=== PATIENT | female | born 1965 | race Caucasian/White ===

== ENCOUNTER 2017-09-16 23:10 | Inpatient (IN) ==
--- NOTE | 2017-09-17 00:41 | Emergency Department Note ---
Disposition Clinical Impression: Neurological deficit present, Weakness of right upper extremity CVA (cerebral vascular accident) Qualifiers: CVA mechanism: unspecified Qualified Code(s): I63.9 - Cerebral infarction, unspecified Disposition: Admitted As Inpatient Condition: Good Time of Disposition: 02:46 General Adult HPI - General Chief complaint: ED General Medical Stated complaint: right wrist pain Time Seen by Provider: 09/16/17 23:30 Source: family Limitations: no limitations Nursing Notes Reviewed: Yes Vital Signs Reviewed: Yes - History of Present Illness HPI Narrative: 52-year-old female Smoker complains of right upper extremity weakness 4 days. Patient describes being seen at the [facility] yesterday, where she had been told that she had a possible stroke. Reportedly at that time transfer for admission to [facility] was offered, and they have discussed with her primary care provider who also advised for admission, but apparently patient had declined. She now presents with similar complaints, and is agreeable to admission. She now mentions that she has pain over the ulnar aspect of her right wrist, and feels that her wrist is "pulling". Other than that she denies any injuries, difficulty swallowing, confusion, fevers. Pain Scale: 8 - Related Data Home Medications Medication Instructions Recorded Confirmed Duloxetine HCl [Cymbalta] 60 mg PO BID 11/16/15 09/15/17 Levothyroxine [Synthroid] 88 mcg PO DAILY 03/01/16 09/15/17 Losartan [Cozaar] 100 mg PO HS 03/01/16 09/15/17 Pregabalin [Lyrica] 100 mg PO TID 07/24/16 09/15/17 Hydromorphone HCl [Dilaudid] 2.5 - 5 ml PO TID 08/06/16 09/15/17 Cetirizine HCl/Pseudoephedrine 1 tab PO BID PRN 09/26/16 09/15/17 [Cetirizine-Pse ER 5-120 mg Tab] Esomeprazole Magnesium [Nexium] 40 mg PO DAILY 09/26/16 09/15/17 Metoprolol XL (24 HR) Succ [Toprol 100 mg PO DAILY 09/26/16 09/15/17 XL] Quetiapine Fumarate [SEROquel] 100 mg PO HS 09/26/16 09/15/17 Insulin Glargine [Lantus] 20 unit SQ QAM 09/15/17 09/15/17 Allergies Allergy/AdvReac Type Severity Reaction Status Date / Time codeine Allergy Vomiting Verified 09/15/17 18:23 nitrofurantoin Allergy See Verified 09/15/17 18:23 [From Macrodantin] Comments ofloxacin [From Floxin] Allergy Vomiting Verified 09/15/17 18:23 Penicillins [PCN] AdvReac Mild See Verified 09/15/17 18:23 Comments lisinopril AdvReac Vomiting Verified 09/15/17 18:23 All systems ED: reviewed and negative except as stated. Review of Systems: As Per HPI Constitutional: Denies: fever, chills Eyes: Denies: vision change ENT ED: Denies: throat pain Cardiovascular: Denies: chest pain, palpitations Respiratory: Denies: dyspnea, wheezes Gastrointestinal: Denies: nausea, vomiting Genitourinary: Denies: dysuria Musculoskeletal: Denies: back pain Integumentary: Denies: rash Neurological: Reports: as per HPI. Denies: headache Psychiatric: Reports: anxiety Endocrine: Denies: fatigue Hematological/Lymphatic: Denies: easy bleeding Allergic/Immunologic: Denies: facial swelling Past Medical History - Past Medical History Medical history: Reports: arthritis, cancer, COPD, diabetes, fibromyalgia, hyperlipidemia, hypertension, RA, thyroid disease Surgical history: Reports: appendectomy, breast surgery, cholecystectomy, hysterectomy, orthopedic, other, BEATRIZ/BSO, thyroidectomy, other Psychiatric history: Reports: anxiety, depression, PTSD, prior suicide attempt - Social History Smoking Status: Current every day smoker Smokeless Tobacco Status: No Alcohol use: Reports: none Drug use: Reports: none Physical Exam - General Limitations: no limitations General appearance: alert, in no apparent distress - Head Head exam: normocephalic - Eye Eye exam: Present: EOMI - ENT ENT exam: mucous membranes moist - Neck Neck exam: Present: full ROM - Chest Chest inspection: Present: symmetric chest wall rise - Respiratory Respiratory exam: Absent: respiratory distress - Cardiovascular Cardiovascular exam: Present: regular rate - Abdominal Exam Abdominal exam: Present: soft, Non-Tender - Extremities Exam Extremities exam: Present: normal inspection, normal capillary refill - Back Exam Back exam: Present: full ROM. Absent: tenderness, CVA tenderness (R), CVA tenderness (L) - Neurological Exam Neurological exam: Present: alert - Expanded Neurological Exam Speech: Present: fluid speech Cranial nerves: EOM function (II, III, IV, ): Normal, facial sensation (V): Normal, spinal accessory function (XI): Normal, tongue deviation (XII): Normal Motor strength - LUE: 5/5 Motor strength - RUE: 0/5 Motor strength - LLE: 5/5 Motor strength - RLE: 5/5 Sensory exam upper extremity: light touch: Abnormal Right, pin prick: Abnormal Right Sensory exam lower extremity: light touch: Normal Coma Scale Eye Opening: Spontaneous Coma Scale Motor Response: Obeys Commands Coma Scale Verbal Response: Oriented Coma Scale Total: 15 - Psychiatric Psychiatric exam: Present: normal affect, normal mood - Skin Skin exam: Present: warm, dry, intact, normal color Course Course Narrative: Patient presents with four-day history of right upper extremity weakness. She had a no deficit workup at [facility] yesterday, and was offered admission and patient had apparently declined. On examination, she does have a flaccid right upper extremity, with decreased sensation. No facial asymmetry. No altered mental status. Good extremity strength and lower extremities, normal distal pulses. Review of medical records. Patient had normal CT scan. She did have a white count of 17. Chest x-ray urinalysis negative for any signs of infection. Patient afebrile here with normal vital limits. Discussed with Dr. Hugo, who agreed with decision to admit. We will repeat CT scan, and blood work. - Reevaluation(s) Reevaluation #1: Patient discussed with and accepted by hospitalist Dr. Quinteros Time: 02:45 Vital Signs Temperature 98.1 F 09/16/17 23:13 Pulse Rate 85 09/16/17 23:13 Respiratory Rate 16 09/16/17 23:13 Blood Pressure 144/89 09/16/17 23:13 O2 Sat by Pulse Oximetry 97 09/16/17 23:13 Temperature 98.6 F 09/17/17 04:19 Pulse Rate 79 09/17/17 04:19 Respiratory Rate 17 09/17/17 04:19 Blood Pressure 115/72 09/17/17 04:19 O2 Sat by Pulse Oximetry 94 09/17/17 04:19 Oxygen Delivery Oxygen Delivery Room Air Medical Decision Making - MDM Narrative Medical decision making narrative: NIH 5. Noted right upper extremity weakness, pain to right wrist. Patient discussed with Dr. Hugo also decreased on the patient agreed with workup and disposition. Patient was accepted by hospitalist for inpatient management Head CT 09/17/17 00:41 IMPRESSION: No acute intracranial abnormality. D/ / Michoacano Hill MD / Michoacano Hill MD Interpreting Provider: Michoacano Hill MD Wrist X-Ray 09/17/17 01:07 IMPRESSION: No evidence of an acute injury. D/ / Michoacano Hill MD / Michoacano Hill MD Interpreting Provider: Michoacano Hill MD - Medical Records Medical records reviewed: Yes I reviewed the patient's medical records. - Lab Data Lab results reviewed: Yes I reviewed the patient's lab results. Result diagrams: 09/17/17 00:58 09/17/17 00:58 Lab Results 09/17/17 09/17/17 09/17/17 Range/Units 00:58 00:58 00:58 WBC 17.3 H (4.3-11.1) K/mcL RBC 4.69 (3.82-4.97) M/mcL Hgb 14.0 (11.5-15.4) g/dL Hct 41.8 (35.3-44.9) % MCV 89.1 (83.0-100.0) fL MCH 29.9 (28.0-33.3) pg MCHC 33.5 (31.6-35.5) g/dL RDW 13.5 (11.5-14.5) % Plt Count 342 (140-400) K/mcL MPV 9.7 (9.4-12.4) fL Immature Gran % 0.5 (0-4) % Seg Neutrophils % 67.2 % Lymphocytes % 25.8 % Monocytes % 4.9 % Eosinophils % 1.2 % Basophils % 0.4 % Neutrophils # 11.7 H (1.6-8.9) K/mcL Lymphocytes # 4.5 (0.6-4.6) K/mcL Monocytes # 0.9 (0.0-1.3) K/mcL Eosinophils # 0.2 (0.0-0.6) K/mcL Basophils # 0.1 (0.0-0.2) K/mcL PT 12.2 H (9.4-12.1) Seconds INR 1.1 APTT 31.8 (26.0-36.0) Seconds Sodium 135 L (136-145) mEq/L Potassium 3.3 L (3.5-5.1) mEq/L Chloride 100 (98-107) mEq/L Carbon Dioxide 28 (23-29) mEq/L BUN 12 (6-20) mg/dL Creatinine 0.71 (0.60-1.20) mg/dL Est GFR ( Amer) > 60 (> 60) Est GFR (Non-Af Amer) > 60 (> 60) BUN/Creatinine Ratio 17 (6-26) Glucose 100 (70-105) mg/dL Calculated Osmolality 280 (280-300) Calcium 9.3 (8.6-10.3) mg/dL Magnesium 2.0 (1.6-2.6) mg/dL Triglycerides 174 H (< 150) mg/dL Cholesterol 209 H (< 200) mg/dL LDL Cholesterol, Calc 141 H (0-99) mg/dL VLDL Cholesterol, Calc 35 H (< 31) mg/dL HDL Cholesterol 33 L (40-59) mg/dL Cholesterol/HDL Ratio 6.3 H (0-4.9) Urine Color (Yellow) Urine Clarity (Clear) Urine pH (5.0-8.0) pH Units Ur Specific [place] (1.010-1.025) Urine Protein (Neg-Trace) mg/dL Urine Glucose (UA) (Normal) mg/dL Urine Ketones (Negative) mg/dL Urine Blood (Negative) Urine Nitrite (Negative) Urine Bilirubin (Negative) Urine Urobilinogen (Normal) mg/dL Ur Leukocyte Esterase (Negative) Urine Microscopic RBC (0-3) per hpf Urine Microscopic WBC (0-3) per hpf Ur Squamous Epith Cells (None-Few) per lpf Urine Bacteria (None-Few) per hpf Hyaline Casts (None-Few) per lpf Ur Culture Indicated? (NO) 09/17/17 Range/Units 01:56 WBC (4.3-11.1) K/mcL RBC (3.82-4.97) M/mcL Hgb (11.5-15.4) g/dL Hct (35.3-44.9) % MCV (83.0-100.0) fL MCH (28.0-33.3) pg MCHC (31.6-35.5) g/dL RDW (11.5-14.5) % Plt Count (140-400) K/mcL MPV (9.4-12.4) fL Immature Gran % (0-4) % Seg Neutrophils % % Lymphocytes % % Monocytes % % Eosinophils % % Basophils % % Neutrophils # (1.6-8.9) K/mcL Lymphocytes # (0.6-4.6) K/mcL Monocytes # (0.0-1.3) K/mcL Eosinophils # (0.0-0.6) K/mcL Basophils # (0.0-0.2) K/mcL PT (9.4-12.1) Seconds INR APTT (26.0-36.0) Seconds Sodium (136-145) mEq/L Potassium (3.5-5.1) mEq/L Chloride (98-107) mEq/L Carbon Dioxide (23-29) mEq/L BUN (6-20) mg/dL Creatinine (0.60-1.20) mg/dL Est GFR ( Amer) (> 60) Est GFR (Non-Af Amer) (> 60) BUN/Creatinine Ratio (6-26) Glucose (70-105) mg/dL Calculated Osmolality (280-300) Calcium (8.6-10.3) mg/dL Magnesium (1.6-2.6) mg/dL Triglycerides (< 150) mg/dL Cholesterol (< 200) mg/dL LDL Cholesterol, Calc (0-99) mg/dL VLDL Cholesterol, Calc (< 31) mg/dL HDL Cholesterol (40-59) mg/dL Cholesterol/HDL Ratio (0-4.9) Urine Color Yellow (Yellow) Urine Clarity Clear (Clear) Urine pH 6.5 (5.0-8.0) pH Units Ur Specific [place] 1.012 (1.010-1.025) Urine Protein Negative (Neg-Trace) mg/dL Urine Glucose (UA) Normal (Normal) mg/dL Urine Ketones Negative (Negative) mg/dL Urine Blood Trace H (Negative) Urine Nitrite Negative (Negative) Urine Bilirubin Negative (Negative) Urine Urobilinogen Normal (Normal) mg/dL Ur Leukocyte Esterase Negative (Negative) Urine Microscopic RBC 0-3 (0-3) per hpf Urine Microscopic WBC 0-3 (0-3) per hpf Ur Squamous Epith Cells Few (None-Few) per lpf Urine Bacteria None Seen (None-Few) per hpf Hyaline Casts None Seen (None-Few) per lpf Ur Culture Indicated? NO (NO) - Radiology Data Radiology results reviewed: Yes I reviewed the patient's radiology results.
[2017-09-17] MEDS ORDERED: *HR* FentaNYL (PF) 100 MCG/2 ML VIAL IVP ONE (01:08)
--- NOTE | 2017-09-17 01:08 | Emergency Department Note ---
Disposition Clinical Impression: Neurological deficit present Disposition: Admitted As Inpatient Referrals: Augie Feliciano MD [Primary Care Provider] - Forms: ED Satisfaction Letter, Work/School Release General Adult HPI - General Chief complaint: ED General Medical Stated complaint: right wrist pain Time Seen by Provider: 09/16/17 23:30 Source: family Limitations: no limitations - History of Present Illness Pain Scale: 8 - Related Data Home Medications Medication Instructions Recorded Confirmed Duloxetine HCl [Cymbalta] 60 mg PO BID 11/16/15 09/15/17 Levothyroxine [Synthroid] 88 mcg PO DAILY 03/01/16 09/15/17 Losartan [Cozaar] 100 mg PO HS 03/01/16 09/15/17 Pregabalin [Lyrica] 100 mg PO TID 07/24/16 09/15/17 Hydromorphone HCl [Dilaudid] 2.5 - 5 ml PO TID 08/06/16 09/15/17 Cetirizine HCl/Pseudoephedrine 1 tab PO BID PRN 09/26/16 09/15/17 [Cetirizine-Pse ER 5-120 mg Tab] Esomeprazole Magnesium [Nexium] 40 mg PO DAILY 09/26/16 09/15/17 Metoprolol XL (24 HR) Succ [Toprol 100 mg PO DAILY 09/26/16 09/15/17 XL] Quetiapine Fumarate [SEROquel] 100 mg PO HS 09/26/16 09/15/17 Insulin Glargine [Lantus] 20 unit SQ QAM 09/15/17 09/15/17 Allergies Allergy/AdvReac Type Severity Reaction Status Date / Time codeine Allergy Vomiting Verified 09/15/17 18:23 nitrofurantoin Allergy See Verified 09/15/17 18:23 [From Macrodantin] Comments ofloxacin [From Floxin] Allergy Vomiting Verified 09/15/17 18:23 Penicillins [PCN] AdvReac Mild See Verified 09/15/17 18:23 Comments lisinopril AdvReac Vomiting Verified 09/15/17 18:23 Past Medical History - Past Medical History Medical history: Reports: arthritis, cancer, COPD, diabetes, fibromyalgia, hyperlipidemia, hypertension, RA, thyroid disease Surgical history: Reports: appendectomy, breast surgery, cholecystectomy, hysterectomy, orthopedic, other, BEATRIZ/BSO, thyroidectomy, other Psychiatric history: Reports: anxiety, depression, PTSD, prior suicide attempt - Social History Smoking Status: Current every day smoker Smokeless Tobacco Status: No Alcohol use: Reports: none Drug use: Reports: none Physical Exam - General Limitations: no limitations General appearance: alert, in no apparent distress Course Vital Signs Temperature 98.1 F 09/16/17 23:13 Pulse Rate 85 09/16/17 23:13 Respiratory Rate 16 09/16/17 23:13 Blood Pressure 144/89 09/16/17 23:13 O2 Sat by Pulse Oximetry 97 09/16/17 23:13 Temperature 98.1 F 09/16/17 23:32 Pulse Rate 50 09/17/17 00:50 Respiratory Rate 18 09/17/17 00:50 Blood Pressure 132/75 09/17/17 00:50 O2 Sat by Pulse Oximetry 90 09/17/17 00:50 Oxygen Delivery Oxygen Delivery Room Air Attestation Statement - Attestation Attestation: I examined this patient and my medical decision-making was reviewed with the Resident Physician. I agree with the documented findings, disposition and treatment plan as described except to the extent set forth below. 52 year old female who originally presented to the ED in [place] for right sided neuro defecits with flaccidity and contraction who was offered admission to the hospital for stroke eval left AMA. Danielle is back in our ed today with wosening symptoms and pain in the right wrist now from the contraction and saw her PCP today and was recommended to come to the ED for admsision to the hospital. Danielle is agreeable at thist time. We will obtain HCT and XR of right wrist and pain medications. We will admit to medicine
[2017-09-17 01:09] LABS: Basophils # 0.1 K/mcL (0.0-0.2); Basophils % 0.4 %; Eosinophils # 0.2 K/mcL (0.0-0.6); Eosinophils % 1.2 %; Hematocrit 41.8 % (35.3-44.9); Immature Granulocytes % 0.5 % (0-4); Lymphocytes # 4.5 K/mcL (0.6-4.6); Lymphocytes % 25.8 %; Mean Corpuscular HGB Conc 33.5 g/dL (31.6-35.5); Mean Corpuscular Hemoglobin 29.9 pg (28.0-33.3); Mean Corpuscular Volume 89.1 fL (83.0-100.0); Mean Platelet Volume 9.7 fL (9.4-12.4); Monocytes # 0.9 K/mcL (0.0-1.3); Monocytes % 4.9 %; Neutrophils # 11.7 K/mcL (1.6-8.9); Platelet Count 342 K/mcL (140-400); Red Blood Count 4.69 M/mcL (3.82-4.97); Red Cell Distribution Width 13.5 % (11.5-14.5); Segmented Neutrophils % 67.2 %
[2017-09-17 01:15] LABS: INR 1.1; Prothrombin Time 12.2 Seconds (9.4-12.1)
[2017-09-17 01:17] LABS: Activated Partial Thrombo Time 31.8 Seconds (26.0-36.0)
[2017-09-17 01:32] LABS: BUN/Creatinine Ratio 17 (6-26); Blood Urea Nitrogen 12 mg/dL (6-20); Calcium 9.3 mg/dL (8.6-10.3); Carbon Dioxide 28 mEq/L (23-29); Chloride 100 mEq/L (98-107); Glucose 100 mg/dL (70-105); Osmolality,Calculated 280 (280-300); Potassium 3.3 mEq/L (3.5-5.1); Sodium 135 mEq/L (136-145); eGFR For Non-African Americans > 60 (> 60)
[2017-09-17 02:32] LABS: Bilirubin,Urine Negative (Negative); Blood,Urine Trace (Negative); Clarity,Urine Clear (Clear); Color,Urine Yellow (Yellow); Glucose,Urine (UA) Normal (Normal); Ketones,Urine Negative (Negative); Leukocyte Esterase,Urine Negative (Negative); Nitrite,Urine Negative (Negative); PH,Urine 6.5 pH Units (5.0-8.0); Protein,Urine Negative (Neg-Trace); Specific Gravity,Urine 1.012 (1.010-1.025); Urobilinogen,Urine Normal (Normal)
[2017-09-17 02:35] LABS: Bacteria,Urine None Seen per hpf (None-Few); Hyaline Casts,Urine None Seen per lpf (None-Few); RBC,Urine 0-3 per hpf (0-3); Squamous Epithelial Cell,Urine Few per lpf (None-Few); WBC,Urine 0-3 per hpf (0-3)
[2017-09-17] MEDS ORDERED: *HR* OxyCODONE Immed Rel 5 MG TABLET PO PRN (02:41)
[2017-09-17] MEDS ORDERED: *HR* HYDROcodone/Acet 5/325 mg TABLET PO PRN (02:41)
[2017-09-17] MEDS ORDERED: Naloxone 0.4 MG/ML INJ IVP PRN (02:41)
[2017-09-17] MEDS ORDERED: Acetaminophen 325 MG TABLET PO PRN (02:41)
[2017-09-17] MEDS ORDERED: Baclofen 10 MG TABLET PO PRN (02:45)
--- NOTE | 2017-09-17 02:54 | Internal Med History&Physical ---
Date of Encounter: 09/17/17 Time of Encounter: 03:40 Internal Medicine - H&P: HPI Chief complaint: R UE weakness and pain Admitted From: Home History of present illness: Ms. Yañez is a 52 year old female with past medical history of diabetes, hypertension, hyperlipidemia presented to the ED with right upper limb weakness and pain. She was actually at the outside hospital ED yesterday for the same complaint, was found to have flaccid paralysis of R arm, and was advised to be transferred to [facility] for further workup of stroke which she declined and left AMA. She was seen earlier today by her primary care doctor and was advised to come back to the ED for admission. Started about 4 days ago, sudden in onset, no aggravating or relieving factors. She initially attributed it to being outside in the heat for prolonged period of time. Associated with right arm numbness and slurring of speech. Since the onste, she also complains of choking on her food intermittently. Denies any headache, blurring of vision, facial droop, or any other focal weakness/numbness. No fever/chills, nausea/vomiting, abdominal pain, change of bowel habits, or dysuria. In the ED, she was afebrile and hemodynamically stable. Workup again demonstrated leukocytosis of 17.[address] head again showed no acute intracranial processes. Right wrist x-ray was within normal limits. She was given 40meq of potassium chloride and admitted for further management. Past Med Surg Social Fam HX - Past Medical History Attestation: Yes The following information was validated with the patient. Medical history: arthritis, cancer, COPD, diabetes, fibromyalgia, hyperlipidemia , hypertension, RA, thyroid disease Additional medical history: vitamin d defficiency - chronic back pain Psychiatric history: anxiety, depression, PTSD, prior suicide attempt - Past Surgical History Surgical History: appendectomy, breast surgery, cholecystectomy, hysterectomy, orthopedic, other, BEATRIZ/BSO, thyroidectomy, other Additional surgical history: bronch - heart cath - Social History Smoking Status: Current every day smoker Smokeless Tobacco Status: No Alcohol use: none Drug use: none Internal Medicine - H&P: Meds Duloxetine HCl [Cymbalta] 60 mg PO BID 11/16/15 [History] Levothyroxine [Synthroid] 88 mcg PO DAILY 03/01/16 [History] Losartan [Cozaar] 100 mg PO HS 03/01/16 [History] Pregabalin [Lyrica] 100 mg PO TID 07/24/16 [History] Hydromorphone HCl [Dilaudid] 2.5 - 5 ml PO TID 08/06/16 [History] Cetirizine HCl/Pseudoephedrine [Cetirizine-Pse ER 5-120 mg Tab] 1 tab PO BID PRN 09/26/16 [History] Esomeprazole Magnesium [Nexium] 40 mg PO DAILY 09/26/16 [History] Metoprolol XL (24 HR) Succ [Toprol XL] 100 mg PO DAILY 09/26/16 [History] Quetiapine Fumarate [SEROquel] 100 mg PO HS 09/26/16 [History] Insulin Glargine [Lantus] 20 unit SQ QAM 09/15/17 [History] 3 Allergy/AdvReac Type Severity Reaction Status Date / Time codeine Allergy Vomiting Verified 09/15/17 18:23 nitrofurantoin Allergy See Verified 09/15/17 18:23 [From Macrodantin] Comments ofloxacin [From Floxin] Allergy Vomiting Verified 09/15/17 18:23 Penicillins [PCN] AdvReac Mild See Verified 09/15/17 18:23 Comments lisinopril AdvReac Vomiting Verified 09/15/17 18:23 All Systems PM: A 10-system review of systems was performed and is negative for pertinent findings except as documented above in the HPI. - Constitutional Vitals: Temp Pulse Resp BP Pulse Ox 98.1 F 50 18 132/75 90 09/16/17 23:32 09/17/17 00:50 09/17/17 00:50 09/17/17 00:50 09/17/17 00:50 Exam: General: Alert and oriented, not in acute distress. HEENT:EOM, pupils equal, round and reactive. Cardiovascular:Normal S1 & S2, No JVD. Pulse regular. Lungs: clear to auscultation, no wheezes/rales Abdomen:Soft, non-tender, no rigidity. Extremities:No deformity or swelling Neurological: CN II-XII intact, no cerebellar signs. R upper extremity 0/5 in power with sensation loss throughout all dermatomes. Other extremities power and sensation intact. Babinski downgoing bilaterally Skin:Normal color, no rash, no lesions. Pulses:Carotid and radial pulses normal +2. Rest of the physical exam is non contributory Internal Med - H&P Results - Labs CBC & Chem 7: 09/17/17 00:58 09/17/17 00:58 Labs: Short CBC 09/17/17 Range/Units 00:58 WBC 17.3 H (4.3-11.1) K/mcL Hgb 14.0 (11.5-15.4) g/dL Hct 41.8 (35.3-44.9) % Plt Count 342 (140-400) K/mcL Neutrophils # 11.7 H (1.6-8.9) K/mcL BMP 09/17/17 00:58 Sodium 135 L Potassium 3.3 L Chloride 100 Carbon Dioxide 28 BUN 12 Creatinine 0.71 Glucose 100 Calcium 9.3 Urine 09/17/17 Range/Units 01:56 Urine Color Yellow (Yellow) Urine Clarity Clear (Clear) Urine pH 6.5 (5.0-8.0) pH Units Ur Specific [place] 1.012 (1.010-1.025) Urine Protein Negative (Neg-Trace) mg/dL Urine Glucose (UA) Normal (Normal) mg/dL - Impressions ITS Impressions Head CT 09/17/17 00:41 IMPRESSION: No acute intracranial abnormality. D/ / Michoacano Hill MD / Michoacano Hill MD Interpreting Provider: Michoacano Hill MD Wrist X-Ray 09/17/17 01:07 IMPRESSION: No evidence of an acute injury. D/ / Michoacano Hill MD / Michoacano Hill MD Interpreting Provider: Michoacano Hill MD - Assessment and plan (1) CVA (cerebral vascular accident) Current Visit: Yes Status: Acute Assessment and plan: Flaccid paralysis of right upper limb and pain from contracture is highly suspicious for cerebrovascular accident Risk factors including diabetes, hypertension, hyperlipidemia, and active tobacco use. CT head -ve for acute intracranial processes start ASA, statin Will proceed with MR brain telemetry overnight Echocardiogram, carotid doppler Check A1c, lipid NPO, speech eval as patient is complaining of dysphagia PT/OT smoking cessation emphasized, NRT PRN Qualifiers: CVA mechanism: unspecified Qualified Code(s): I63.9 - Cerebral infarction, unspecified (2) Hypokalemia Current Visit: Yes Status: Acute Assessment and plan: repleted (3) DM type 2 (diabetes mellitus, type 2) Current Visit: No Status: Chronic Assessment and plan: A1c 6.8 in 04/2017, on lantus 20U daily and novolog sliding scale repeat A1c levemir 10U HS and low dose sliding scale AC+HS ADA diet Qualifiers: Diabetes mellitus mcfp insulin use: with mcfp use Diabetes mellitus complication status: without complication Qualified Code(s): E11.9 - Type 2 diabetes mellitus without complications; Z79.4 - assisted (current) use of insulin (4) Hypertension Current Visit: Yes Status: Acute Assessment and plan: out of window for permissive HTN resume home meds when reconciled Qualifiers: Hypertension type: unspecified Qualified Code(s): I10 - Essential (primary ) hypertension (5) Hypothyroidism Current Visit: Yes Status: Acute Assessment and plan: resume home meds Qualifiers: Hypothyroidism type: unspecified Qualified Code(s): E03.9 - Hypothyroidism , unspecified (6) DVT prophylaxis Current Visit: Yes Status: Acute Assessment and plan: SQ heparin - Time Spent With Patient Total time spent is greater than 50% in coordination of care (as documented) at patient's floor/unit and/or counseling patient:
[2017-09-17 03:06] LABS: Chol/HDL Ratio 6.3 (0-4.9); Cholesterol 209 mg/dL (< 200); HDL Cholesterol 33 mg/dL (40-59); LDL Cholesterol,Calculated 141 mg/dL (0-99); Triglycerides 174 mg/dL (< 150)
[2017-09-17] MEDS ORDERED: *HR* Dextrose 50 % in Water (Syg) 50 ML SYRINGE IVP PRN (03:15)
[2017-09-17] MEDS ORDERED: Dextrose Gel 15 GM/37.5 ML TUBE PO PRN ×2 (03:15)
[2017-09-17] MEDS ORDERED: D5% in Water 1,000 ML IVC PRN (03:15)
[2017-09-17] MEDS ORDERED: Loratadine/Pseudophed (12 HR) 1 EACH TABLET PO PRN (05:51)
[2017-09-17] MEDS ORDERED: *HR* Heparin 5,000 UNIT/ML VIAL SQ SCH (06:00)
[2017-09-17] MEDS ORDERED: Insulin LISPRO 300 UNITS/3 ML VIAL SQ SCH ×2 (07:30→21:00)
[2017-09-17] MEDS ORDERED: Nicotine 21 MG PATCH.TD24 TD SCH (09:00)
[2017-09-17] MEDS ORDERED: Aspirin Enteric Coated 81 MG Tablet PO SCH (09:00)
[2017-09-17] MEDS ORDERED: Pregabalin 50 MG CAPSULE PO SCH (09:00)
[2017-09-17] MEDS ORDERED: Metoprolol XL (24 HR) Succ 50 MG TAB.ER.24H PO SCH (09:00)
[2017-09-17 09:51] LABS: Estimated Average Glucose 134 mg/dl; Hemoglobin A1C 6.3 %
[2017-09-17 12:13] VITALS: BP 106/72
--- NOTE | 2017-09-17 15:11 | Internal Med Progress Note ---
Hospitalist Progress Note - Encounter Date of Encounter: 09/17/17 Time of Encounter: 10:00 - Subjective Interval History: Patient admitted early this a.m. throughout the day she said she is feeling well however she still has flaccid paralysis of her right upper extremity. Able to slightly move her fourth and fifth digit and only about 2 cm of movement. Also sensation except in her wrist. Has significant pain in her wrist. Denies slurred speech, difficulty swallowing. Denies headache, vision changes, instability. - Exam Vitals: Temp Pulse Resp BP Pulse Ox 98.2 F 72 14 106/72 95 09/17/17 12:03 09/17/17 12:03 09/17/17 12:03 09/17/17 12:03 09/17/17 08:13 Exam: General: Mild distress, alert and oriented HEENT: Atraumatic normocephalic, PERRLA, EOMI Cardio: Regular rate and rhythm, no murmurs rubs or gallops Pulmonary clear to auscultation bilaterally no wheezes rales or rhonchi MSK: 0/5 strength right upper extremity, Neuro: Cranial nerves II through XII intact, no cerebellar signs, loss of sensation right upper extremity except for pain in wrist Psych: Alert and oriented, strongly desired to go home patient seems to only be minimally concerned with her medical issues - Assessment and Plan (1) Neurological deficit present Current Visit: Yes Status: Acute Assessment and Plan: Flaccid paralysis of right upper limb and pain from contracture is highly suspicious for cerebrovascular accident Risk factors including diabetes, hypertension, hyperlipidemia, and active tobacco use. MRI negative for an acute intercranial process MRI of cervical spine say no significant spinal cord compressssion or narrowing MRI of chest with attention to brachioplexus pending telemetry overnight Echocardiogram, carotid doppler Plan -PT/OT -Smoking cessation emphasized, NRT PRN (2) CVA (cerebral vascular accident) Current Visit: Yes Status: Acute Assessment and Plan: Flaccid paralysis of right upper limb and pain from contracture is highly suspicious for cerebrovascular accident Risk factors including diabetes, hypertension, hyperlipidemia, and active tobacco use. MRI negative for an acute intercranial process start ASA, statin Will proceed with MR brain telemetry overnight Echocardiogram, carotid doppler Check A1c, lipid NPO, speech eval as patient is complaining of dysphagia PT/OT smoking cessation emphasized, NRT PRN (3) DM type 2 (diabetes mellitus, type 2) Current Visit: No Status: Chronic Assessment and Plan: Known history A1c 6.8 in 04/2017, on lantus 20U daily and novolog sliding scale repeat A1c levemir 10U HS and low dose sliding scale AC+HS ADA diet (4) Hypokalemia Current Visit: Yes Status: Acute (5) Hypertension Current Visit: Yes Status: Acute (6) DVT prophylaxis Current Visit: Yes Status: Acute (7) Hypothyroidism Current Visit: Yes Status: Acute - Time Spent with Patient Total time spent is greater than 50% in coordination of care (as documented) at patient's floor/unit and/or counseling patient: Internal Medicine: Result - Labs CBC & Chem 7: 09/17/17 00:58 09/17/17 00:58 - ABG Interpretation ABG results: PT/INR, D-dimer PT 12.2 Seconds (9.4-12.1) H 09/17/17 00:58 - Impressions Impressions Cervical Spine MRI 09/17/17 12:00 IMPRESSION: Mild degenerative changes of the cervical spine as described above with mild left neural foraminal narrowing at C5-6 and C6-7. No significant spinal canal stenosis or right neural foraminal narrowing evident. D/ / 09/17/2017 14:24:49 Kendrick Campuzano MD / [email or web address] Interpreting Provider: Kendrick Campuzano MD Consult Discharge Plan - Plan Referrals: Augie Feliciano MD [Primary Care Provider] - (2) CVA (cerebral vascular accident) Qualifiers: CVA mechanism: unspecified Qualified Code(s): I63.9 - Cerebral infarction, unspecified (3) DM type 2 (diabetes mellitus, type 2) Qualifiers: Diabetes mellitus intermediate accountant insulin use: with intermediate accountant use Diabetes mellitus complication status: without complication Qualified Code(s): E11.9 - Type 2 diabetes mellitus without complications; Z79.4 - predatory animal exterminator (current) use of insulin (5) Hypertension Qualifiers: Hypertension type: unspecified Qualified Code(s): I10 - Essential (primary) hypertension (7) Hypothyroidism Qualifiers: Hypothyroidism type: unspecified Qualified Code(s): E03.9 - Hypothyroidism, unspecified
--- NOTE | 2017-09-17 16:17 | Discharge Summary ---
<Thai Castellon W - Last Filed: 09/17/17 16:43> - NOTES TO OUTPATIENT PROVIDER Notes to Outpatient Provider: Patient came in complaining of R UE paralysis and loss of sensation but with right wrist pain. It was found the patient did not have RUE paralysis due t inconsistent physical exams but had an tender wrist with an elevated white count. Spetic joint cannot be ruled out. CVA ruled out. 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 of insulin (2) Hypokalemia Priority: Secondary Status: Acute Assessment and Plan: repleted (3) Hypertension Priority: Secondary Status: Acute Assessment and Plan: Resume home medications Qualifiers: Hypertension type: unspecified Qualified Code(s): I10 - Essential (primary ) hypertension (4) Hypothyroidism Priority: Secondary Status: Acute Assessment and Plan: resume home meds Qualifiers: Hypothyroidism type: unspecified Qualified Code(s): E03.9 - Hypothyroidism , unspecified (5) DVT prophylaxis Priority: Secondary Status: Acute Assessment and Plan: SQ heparin (6) Wrist joint pain Priority: Primary Status: Acute Assessment and Plan: Patient had significant tenderness of her right wrist especially over the ulnar styloid process. X-ray of the wrist was negative Patient stated she had complete paralysis of her right upper extremity and complete loss of sensation, however, on PE she was found not to have paralysis Patient had elevated blood cell count of 17.3 Patient also complained of slurred speech and dysphagia, CVA workup was completely negative Qualifiers: Laterality: right Qualified Code(s): M25.531 - Pain in right wrist Hospital course: Ms. Yañez is a 52 year old female who was originally seen at the [place] [facility] complaining of right upper extremity paralysis, seizures speech, dysphagia. Was recommended she be transferred to [facility]. However, patient left AMA. Following day patient returned to [facility]. Patient received CT of the head, no acute abnormality. Patient complained of right upper extremity paralysis, complete loss of sensation, significant pain in her wrist on the right side. Patient received x-ray of her right wrist, no acute abnormalities. Patient still complained of symptoms MRI of the head, neck and chest with focus of brachial plexus was performed. No acute abnormalities found. On repeat physical examination patient was found to have inconsistent findings. Patient was able to hold her arm up so paralysis was seen. However patient did have significant tenderness in her right wrist ( ulnar styloid process. Patient how white count 17.3. At this time patient left the hospital AGAINST MEDICAL ADVICE. She was warned of the risks of leaving the risks associated with possible septic joint and other complications. Patient understood these risks and understood leaving against medical engineer placed her at higher risk of complications. - Time Spent with Patient Total time spent providing and/or coordinating discharge services: - Discharge Medications Home Medications: Duloxetine HCl [Cymbalta] 60 mg PO BID 11/16/15 [History] Levothyroxine [Synthroid] 88 mcg PO DAILY 03/01/16 [History] Losartan [Cozaar] 100 mg PO HS 03/01/16 [History] Pregabalin [Lyrica] 100 mg PO TID 07/24/16 [History] Hydromorphone HCl [Dilaudid] 2.5 - 5 ml PO TID 08/06/16 [History] Cetirizine HCl/Pseudoephedrine [Cetirizine-Pse ER 5-120 mg Tab] 1 tab PO BID PRN 09/26/16 [History] Metoprolol XL (24 HR) Succ [Toprol XL] 100 mg PO DAILY 09/26/16 [History] Quetiapine Fumarate [SEROquel] 100 mg PO HS 09/26/16 [History] Insulin Glargine [Lantus] 20 unit SQ QAM 09/15/17 [History] Amlodipine Besylate 10 mg PO DAILY 09/17/17 [History] BuPROPion SR (12 HR) [Wellbutrin SR] 150 mg PO DAILY 09/17/17 [History] Insulin ASPART [NovoLOG] 0 unit SQ TID PRN 09/17/17 [History] Lansoprazole [Prevacid] 30 mg PO DAILY 09/17/17 [History] OXcarbazepine [Oxcarbazepine] 600 mg PO HS 09/17/17 [History] Allergies/Adverse Reactions: 3 Allergy/AdvReac Type Severity Reaction Status Date / Time codeine Allergy Vomiting Verified 09/15/17 18:23 nitrofurantoin Allergy See Verified 09/15/17 18:23 [From Macrodantin] Comments ofloxacin [From Floxin] Allergy Vomiting Verified 09/15/17 18:23 Penicillins [PCN] AdvReac Mild See Verified 09/15/17 18:23 Comments lisinopril AdvReac Vomiting Verified 09/15/17 18:23 Date of admission: 09/17/17 02:53 Primary care physician: Augie Feliciano MD Discharging clinician: Thai Castellon Anticipated date of discharge: 09/17/17 - Constitutional Vitals: Temp Pulse Resp BP Pulse Ox 98.2 F 72 14 106/72 95 09/17/17 12:03 09/17/17 12:03 09/17/17 12:03 09/17/17 12:03 09/17/17 08:13 General appearance: Present: mild distress, A&O X 3, answers questions appropriately Exam: See above - Head Head exam: Present: atraumatic, normocephalic - Eye Eye exam: Present: EOMI, PERRL, sclera anicteric - ENT ENT exam: Present: mucous membranes moist - Neck Neck exam general surgery: Present: normal inspection, trachea midline. Absent : tenderness Additional comments: No pinpoint tenderness along the cervical spine along the spinous processes - Respiratory Respiratory exam: Present: CTAB. Absent: rales, respiratory distress, rhonchi, stridor, wheezes - Cardiovascular Cardiovascular exam: Present: distant heart sounds, RRR, +S1, +S2. Absent: +S3 , +S4 - Extremities Exam Extremities exam: Present: normal capillary refill, tenderness (Tenderness on the right wrist specifically on the ulnar side), warm - Expanded Upper Extremities Exam Forearm wrist exam: Present: tenderness (Significant tenderness specifically on the ulnar side) - Neurological Exam Neurological exam: Present: alert, motor sensory deficit, normal gait Additional comments: Patient endorsed the right upper extremity paralysis complete loss of sensation subsequent physical exams was found she did not have any paralysis. She did however, still report a loss of sensation. Subjective reporting is questionable based on the presence of pain in the incorrect description of paralysis per the patient. - Psychiatric Additional comments: Inconsistent reporting - Skin Skin exam: Present: dry, normal color, warm. Absent: petechiae, rash - Patient Status Disposition: Left Against Medical Advice Condition: Good Overall status at discharge: patient is not back to baseline - Discharge Instructions Follow Up With: Augie Feliciano MD [Primary Care Provider] - - Diet and Activity Activity: increase activity as tolerated Diet: advance to your usual diet - Stroke Contraindication Rehab Services Not Assessed: Refused by Patient / Family <Ron Myers - Last Filed: 09/17/17 18:33> Date of Encounter: 09/17/17 - Discharge Diagnosis (1) DM type 2 (diabetes mellitus, type 2) Status: Chronic Qualifiers: Diabetes mellitus terminal gauger supervisor insulin use: with terminal gauger supervisor use Diabetes mellitus complication status: without complication Qualified Code(s): E11.9 - Type 2 diabetes mellitus without complications; Z79.4 - [facility] (current) use of insulin (2) Hypokalemia Status: Acute (3) Hypertension Status: Acute Qualifiers: Hypertension type: essential hypertension Qualified Code(s): I10 - Essential (primary) hypertension (4) Hypothyroidism Status: Chronic Qualifiers: Hypothyroidism type: acquired Qualified Code(s): E03.9 - Hypothyroidism, unspecified (5) Wrist joint pain Status: Acute Qualifiers: Laterality: right Qualified Code(s): M25.531 - Pain in right wrist (6) Inflammatory arthritis Priority: Primary Status: Acute (7) Tobacco abuse Priority: Secondary Status: Chronic Hospital course: Ms. Yañez is a 52 year old female - Time Spent with Patient Total time spent providing and/or coordinating discharge services: 42min Date of admission: 09/17/17 02:53 Primary care physician: Augie Feliciano MD - Constitutional Vitals: Temp Pulse Resp BP Pulse Ox 98.2 F 72 14 106/72 95 09/17/17 12:03 09/17/17 12:03 09/17/17 12:03 09/17/17 12:03 09/17/17 08:13 - Attending Attestation I examined this patient and my medical decision-making was reviewed with the Resident Physician on 09/17/17. I agree with the documented findings, disposition and treatment plan as described except to the extent set forth below. Ms Yañez has been admitted for presumed CVA. She has decided to leave AMA. Exam alert Restless RUE - She is able to hold arm up against gravity. She has significant swelling of R wrist - especially near ulnar area. Painful to move or touch. No pain in shoulder or under arm. Some erythema of wrist. I/P 1. Inflammatory arthritis R wrist - MRI of head, neck and brachial plexus negative. I discussed with her the possibility that this is infected and the risks of not evaluating it (I was going to consult Rheum). She still insisted on leaving and left AMA.
[2017-09-17] MEDS ORDERED: Insulin DETEMIR 100 UNIT/ML X5UNITS SQ SCH (21:00)
== END 2017-09-17 15:36 | disposition left against medical advice (07) | DRG 93 ==
LOC: EMEROOARM 23:10 → 2NENU 23:10 → SUATTDRO 09-17 02:53 → OBSVTOIN 09-17 02:53 → 2NENU 09-17 03:25
PROVIDERS: ADMIT Family Medicine; ATTEND Internal Medicine